=== PATIENT | male | born 1965 | race Caucasian/White ===

== ENCOUNTER 2020-12-05 17:22 | Emergency (ER) | payer OTHER, SELFPAY ==
[2020-12-05 17:19] VITALS: BP 152/107; PULSE 114; RESP 17; TEMP 36.6; O2SAT 96
--- NOTE | 2020-12-05 17:25 | ECG_ITS ---
Measurements Intervals [place] Rate: 107 P: 37 NM: 156 QRS: 22 QRSD: 88 T: 28 QT: 312 QTc: 416 Interpretive Statements SINUS TACHYCARDIA NONSPECIFIC T-WAVE ABNORMALITY- INF/LAT LEADS ABNORMAL ECG Electronically Signed On 12-05-2020 20:07:53 [employer] by Nirmal Acosta D.O.
[2020-12-05 17:26] VITALS: PULSE 113
--- NOTE | 2020-12-05 17:44 | ED.GENADULT ---
HPI - General Adult General Chief complaint: Unspecified <Lorenzo Soto PA-C - Last Filed: 12/05/20 18:54> Stated complaint: unresponsive/fentanyl <Lorenzo Soto PA-C - Last Filed: 12/05/20 18:54> Source: patient <Lorenzo Soto PA-C - Last Filed: 12/05/20 18:54> Mode of arrival: ambulatory <Lorenzo Soto PA-C - Last Filed: 12/05/20 18:54> Limitations: no limitations <Lorenzo Soto PA-C - Last Filed: 12/05/20 18:54> History of Present Illness HPI narrative: Patient is a 55-year-old male who presents to emergency department for evaluation of having become unresponsive patient notes that at 3:00 he snorted a pill of what he believed to be fentanyl given to him by a friend patient took it due to shoulder pain and hip pain which she chronically has patient was on the floor nonresponsive to painful stimuli EMS presented patient continued to have altered mentation and then began to resolve and is at ANO x3 with a GCS of 15 on arrival to emergency department patient denies any other complaints other than feeling slightly lethargic notes that he had felt fine this morning <Lorenzo Soto PA-C - Last Filed: 12/05/20 18:54> Related Data Home medications: Home Medications Medication Instructions Recorded Confirmed No Home Medications 12/05/20 12/05/20 <Lorenzo Soto PA-C - Last Filed: 12/05/20 18:54> Allergies/adverse reactions: Allergies Allergy/AdvReac Type Severity Reaction Status Date / Time No Known Allergies Allergy Verified 12/05/20 17:26 <Lorenzo Soto PA-C - Last Filed: 12/05/20 18:54> Review of Systems Review of Systems: All systems reviewed & are unremarkable except as noted in HPI and below <Lorenzo Soto PA-C - Last Filed: 12/05/20 18:54> [facility] Social History Social History: Social History (Updated 12/05/20 @ 17:46 by Lorenzo Soto PA-C) Smoking status: Never smoker Alcohol intake: never Substance use type: opiates and other <Lorenzo Soto PA-C - Last Filed: 12/05/20 18:54> Exam Narrative: Exam Narrative: GENERAL: Well-appearing, well-nourished, and in no acute distress. HEAD: Normocephalic, atraumatic. EYES: PERRLA and EOMI. ENT: Nares clear, no rhinorrhea or epistaxis. Mucous membranes moist. CHEST: Clear to auscultation. No respiratory distress. No wheezes rales or rhonchi HEART: Regular rate and rhythm. No murmur heard. Normal peripheral pulses. ABDOMEN: Soft, nontender, nondistended EXTREMITIES: Normal range of motion. No edema. SKIN: Warm, dry, no rash. NEURO: No focal deficits. Alert and oriented x3. Cranial nerves II through XII grossly intact PSYCH: Normal mood and affect. <FINA Garces Last Filed: 12/05/20 18:54> Course Course Emergency Course: Patient evaluated the emergency department was given Narcan has been normal mentation since he arrived patient becoming very agitated demanding to be discharged patient will sign AGAINST MEDICAL ADVICE given that he wants to leave is very agitated was advised to stay and to be evaluated longer but is refusing to do so and wants to leave <FINA Garces Last Filed: 12/05/20 18:54> Vital Signs Vital signs: Vital Signs Temperature 36.6 C 12/05/20 17:19 Pulse Rate 114 H 12/05/20 17:19 Respiratory Rate 17 12/05/20 17:19 Blood Pressure 152/107 H 12/05/20 17:19 Pulse Oximetry 96 12/05/20 17:19 Temperature 36.6 C 12/05/20 17:19 Pulse Rate 113 H 12/05/20 17:26 Respiratory Rate 17 12/05/20 17:19 Blood Pressure 152/107 H 12/05/20 17:19 Pulse Oximetry 96 12/05/20 17:19 <FINA Garces Last Filed: 12/05/20 18:54> Vital Signs Temperature 36.6 C 12/05/20 17:19 Pulse Rate 114 H 12/05/20 17:19 Respiratory Rate 17 12/05/20 17:19 Blood Pressure 152/107 H 12/05/20 17:19 Pulse Oximetry 96 12/05/20 17:19 Temperature 36.6 C 12/05/20 17:19 Pulse Rate 1
[2020-12-05 18:01] LABS: Basophils Absolute Auto 0.1 K/mm3 (0.0-0.1); Basophils Percent Auto 0.8 % (0.2-1.2); Eosinophils Absolute Auto 0.3 K/mm3 (0-0.3); Eosinophils Percent Auto 2.3 % (0-4.4); Hemoglobin 13.6 g/dL (14.0-18.0); Immature Granulocyte Absolute 0.05 K/mm3 (0.00-0.031); Immature Granulocyte Percent A 0.4 % (0-0.5); Lymphocytes Absolute Auto 2.97 K/mm3 (0.9-3.2); Mean Corpuscular HGB Conc 33.2 g/dl (32-36); Mean Corpuscular Hemoglobin 29.7 pg (26-34); Mean Corpuscular Volume 89.5 fl (80-100); Mean Platelet Volume 11.4 fl (7.4-10.4); Monocytes Absolute Auto 0.9 K/mm3 (0.1-0.6); Monocytes Percent Auto 7.3 % (2.6-8.5); Neutrophils Absolute Auto 8.1 K/mm3 (1.3-6.7); Neutrophils Percent Auto 65.2 % (45.5-73.1); Platelet Count Result 191 k/mm3 (150-375); Red Blood Count 4.58 M/mm3 (4.6-6.20); Red Cell Distribution Width 12.7 % (11.5-14.5); White Blood Count 12.4 K/mm3 (4.5-10.0)
[2020-12-05 18:14] LABS: Anion Gap 8 mmol/L (8-16); Blood Urea Nitrogen 17 mg/dL (9-20); Calcium 9.1 mg/dL (8.4-10.2); Carbon Dioxide 23 mmol/L (22-30); Chloride 110 mmol/L (98-107); Estimated CRCL calculation 55 ml/min; Estimated Glomerular Filt Rate 58; Glucose 107 mg/dL (75-110); Potassium 4.1 mmol/L (3.4-5.0); Sodium 141 mmol/L (137-145)
[2020-12-05] MEDS: NALOXONE HCL 0.4 MG/ML VIAL IV PUSH (18:24)
== END 2020-12-05 19:00 | disposition left against medical advice (07) ==
PROVIDERS: Emergency Medicine Emergency Medical Services; Emergency Provider Emergency Medicine
DX: T40.411A Poisoning by fentanyl or fentanyl analogs, accidental (unintentional), initial encounter (principal); M25.519 Pain in unspecified shoulder; M25.559 Pain in unspecified hip; G89.29 Other chronic pain; R00.0 Tachycardia, unspecified; R94.31 Abnormal electrocardiogram [ECG] [EKG]
CPT/HCPCS: 36415; 80048; 85025; 93005; 96374; 99284; J2310